=== PATIENT | female | born 1995 | race Caucasian/White ===

== ENCOUNTER 2021-09-20 16:49 | Inpatient (IN) | payer OTHER ==
[~2021-09-20] VITALS: Ht 160 cm; Wt 68.6 kg
[2021-09-20 18:30] LABS: BASOPHILS ABSOLUTE AUTO 0.03 K/mm3 (0.00-0.23); BASOPHILS PERCENT AUTO 0 % (0-2); EOSINOPHILS ABSOLUTE AUTO 0.01 K/mm3 (0.00-0.68); EOSINOPHILS PERCENT AUTO 0 % (0-6); IMMATURE GRAN ABSOLUTE AUTO 0.07 K/mm3 (0.00-0.10); IMMATURE GRAN PERCENT AUTO 0 % (0-1); LYMPHOCYTES ABSOLUTE AUTO 0.62 K/mm3 (0.84-5.20); LYMPHOCYTES PERCENT AUTO 4 % (21-46); MONOCYTES ABSOLUTE AUTO 1.19 K/mm3 (0.16-1.47); MONOCYTES PERCENT AUTO 7 % (4-13); Mean Corpuscular HGB 36.4 pg (26.0-34.0); Mean Corpuscular HGB Conc 34.1 g/dL (31.5-36.5); Mean Corpuscular Volume 107 fL (80-100); Mean Platelet Volume 10.8 fL (9.1-12.4); NEUTROPHILS ABSOLUTE AUTO 14.73 K/mm3 (1.96-9.15); NEUTROPHILS PERCENT AUTO 89 % (41-73); Platelet Count 82 K/mm3 (150-400); RDW Coefficient Variation 15.5 % (11.7-14.2); RDW Standard Deviation 61.4 fL (35.1-46.3); Red Blood Cell Count 3.85 M/mm3 (3.80-5.20); White Blood Cell Count 16.65 K/mm3 (4.00-11.30)
[2021-09-20 18:54] LABS: Albumin, Blood 3.5 g/dL (3.4-5.0); Bun/Creatinine Ratio 31.5 (12.0-20.0); Calcium, Blood 8.8 mg/dL (8.5-10.1); Creatinine, Blood 0.63 mg/dL (0.40-1.00); Globulin, Blood 3.6 g/dL (2.2-4.0); Potassium, Blood 3.1 mmol/L (3.5-5.5); Total Protein, Blood 7.1 g/dL (6.4-8.2)
[2021-09-21 00:39] LABS: Source, Urine Voided
[2021-09-21 00:41] LABS: Blood, Urine 5+ (Neg); Glucose Qualitative, Urine Neg (Neg); Ketones, Urine 4+ (Neg); Leukocyte Esterase, Urine 1+ (Neg); Nitrite, Urine Pos (Neg); Protein, Urine 3+ (Neg); Urobilinogen, Urine 2+ (Normal); pH, Urine 6.5 (5.0-8.0)
[2021-09-21 00:43] LABS: Appearance, Urine Hazy (Clear); Bilirubin, Urine 2+ (Neg); Color, Urine Amber (P-Yellow)
[2021-09-21 00:48] LABS: Amorphous Light (0-Heavy); Bacteria Mod /hpf; Mucus Mod (0-Heavy); Red Blood Cells, Urine TNTC /hpf (0-2); Squamous Epithelial Cells Few /hpf (Few)
[2021-09-21] MEDS ORDERED: METO25ER PO (03:08)
[2021-09-21 05:37] LABS: BASOPHILS ABSOLUTE AUTO 0.01 K/mm3 (0.00-0.23); BASOPHILS PERCENT AUTO 0 % (0-2); EOSINOPHILS ABSOLUTE AUTO 0.03 K/mm3 (0.00-0.68); EOSINOPHILS PERCENT AUTO 0 % (0-6); Hematocrit 37.8 % (33.0-51.0); Hemoglobin 12.8 g/dL (11.5-16.0); IMMATURE GRAN ABSOLUTE AUTO 0.02 K/mm3 (0.00-0.10); IMMATURE GRAN PERCENT AUTO 0 % (0-1); LYMPHOCYTES ABSOLUTE AUTO 0.85 K/mm3 (0.84-5.20); LYMPHOCYTES PERCENT AUTO 9 % (21-46); MONOCYTES ABSOLUTE AUTO 0.53 K/mm3 (0.16-1.47); MONOCYTES PERCENT AUTO 5 % (4-13); Mean Corpuscular HGB 36.6 pg (26.0-34.0); Mean Corpuscular HGB Conc 33.9 g/dL (31.5-36.5); Mean Corpuscular Volume 108 fL (80-100); NEUTROPHILS ABSOLUTE AUTO 8.49 K/mm3 (1.96-9.15); NEUTROPHILS PERCENT AUTO 86 % (41-73); Platelet Count 60 K/mm3 (150-400); RDW Coefficient Variation 15.4 % (11.7-14.2); RDW Standard Deviation 61.8 fL (35.1-46.3); White Blood Cell Count 9.93 K/mm3 (4.00-11.30)
[2021-09-21 06:14] LABS: Alanine Aminotransfer (ALT/SGP 38 U/L (12-78); Albumin, Blood 3.1 g/dL (3.4-5.0); Alk Phos 87 U/L (50-136); Anion Gap 8 mmol/L (6-16); Aspartate Aminotrans (AST/SGOT 64 U/L (12-37); Bilirubin, Total 2.1 mg/dL (0.1-1.0); Blood Urea Nitrogen 18 mg/dL (8-24); Bun/Creatinine Ratio 29.4 (12.0-20.0); CHOL/HDL RATIO 2.7; CO2, Blood 31 mmol/L (21-32); Calcium, Blood 8.5 mg/dL (8.5-10.1); Chloride, Blood 97 mmol/L (98-108); Cholesterol 166 mg/dL (50-200); Creatinine, Blood 0.61 mg/dL (0.40-1.00); Globulin, Blood 3.1 g/dL (2.2-4.0); Glomerular Filtration Rate 125 (60-); Glucose, Blood 78 mg/dL (70-99); HDL Cholesterol 61 mg/dL (>39); LDL/HDL RATIO 1.2; Low Density Lipoprotein Chol 74 mg/dL (0-110); Potassium, Blood 3.4 mmol/L (3.5-5.5); Sodium, Blood 136 mmol/L (136-145); Total Protein, Blood 6.2 g/dL (6.4-8.2); Triglycerides 154 mg/dL (30-140); Very Low Density Lipoprot Chol 30 mg/dL (6-28)
--- NOTE | 2021-09-21 08:29 | NUR ---
SENIOR SQL DEVELOPER SUMMARY PATIENT ALERT AND ORIENTED TIMES 4. OOB WITH STAND BY ASSIST TO BATHROOM. URINE IS TEA COLORED. CULTURES PENDING. CIWA SCORES WERE 8,8 AND 10 OVERNIGHT. MEDICATED ONCE SINCE ARRIVAL ON FLOOR WITH ZOFRAN FOR NAUSEA AND ONCE WITH FENTANYL FOR LOWER ABDOMINAL PAIN,. HOPING FOR SUCCESS IN REHAB AT [facility]
--- NOTE | 2021-09-21 18:31 | NUR ---
SHIFT SUMMARY PT A&O X 4. VSS. DROWSY, STATES SHE'S ANXIOUS, HAS ABD PAIN AND IS MILDLY NAUSEATED. MEDICATED THROUGHOUT SHIFT FOR ALL 3 COMPLAINTS PER MD ORDERS. (SEE EMAR). CLEAR LIQ DIET INITIATED TODAY, HAS TOLERATED WELL SO FAR. SHE REQUESTED A NICOTENE PATCH THIS AFTERNOON, IS A 1 PK A DAY SMOKER. MD GAVE ORDER FOR 21 MG NICOTENE PATCH. 1ST PATCH APPLIED THIS AFTERNOON. SHE HAS RESTED IN BED THROUGHOUT SHIFT WITH EYES CLOSED, RESP EVEN & UNLABORED, ALTHOUGH, SHE REPORTS SHE FEELS ANXIOUS & SHAKY ON THE INSIDE EVEN THOUGH SHE LOOKS LIKE SHE'S RESTING. HER IS TO CONTINUE WITH PARTICIP[facility].
--- NOTE | 2021-09-22 03:53 | NUR ---
PATIENT HAD TROUBLE SLEEPING DUE TO CONTINUED ANXIETY, AND ABDOMINAL PAIN. SHE IS CONCERNED THAT SHE HAS BEEN ON HER PERIOD FOR THE LAST THREE WEEKS. CIWA SCORES BETWEEN 8-11 OVERNIGHT
[2021-09-22 05:30] LABS: Albumin, Blood 2.6 g/dL (3.4-5.0); Bilirubin, Total 1.7 mg/dL (0.1-1.0); Bun/Creatinine Ratio 13.5 (12.0-20.0); Calcium, Blood 8.2 mg/dL (8.5-10.1); Creatinine, Blood 0.52 mg/dL (0.40-1.00); Globulin, Blood 2.7 g/dL (2.2-4.0); Total Protein, Blood 5.3 g/dL (6.4-8.2)
[2021-09-22 12:15] LABS: International Normalized Ratio 1.04; Prothrombin Time Results 10.9 Sec (9.7-11.5)
--- NOTE | 2021-09-22 17:47 | NUR ---
SHIFT SUMMARY PT REMAINS ANXIOUS & IN PAIN. MEDICATED PER MD ORDERS WITH GOOD RESULTS. (SEE EMAR). DIET ADVANCED TO FULL LIQS STARTING TONIGHT WITH DINNER. HAS BEEN TOLERATING CLR LIQ DIET & REPORTS SHE IS LOOKING FORWARD TO DIET BEING ADVANCED. MD MADE AWARE THAT PT IS MENSTRUATING AND THAT IT HAS BEEN 2+ WEEKS LONG. MD WROTE ORDERS TO CHECK INR. PLTS WERE 60 ON 09/21/21. K TODAY WAS 3.0, REPLACED WITH ORAL POTASSIUM PER MD ORDER. PIV REMAINS INTACT & PATENT. VSS. SHE HAS BEEN INDEPENDENTLY GOING TO THE RESTROOM. HER PLAN IS TO RETURN TO ALCOHOL REHAB UPON DC. CIWA SCORE TODAY HAS BEEN <8.
--- NOTE | 2021-09-22 18:42 | NUR ---
CONFIDENTIAL STATUS PT REQUESTED NO VISITORS AND TO BE MADE CONFIDENTIAL STATUS. PLACED CALL TO ADMITTING TO MAKE THE CHANGE. PT IS OK WITH NURSING STAFF TO SPEAK WITH [facility] WHEN THEY CALL TO CHECK ON HER. PT IS ALSO OK WITH STAYING IN THE SAME ROOM.
[2021-09-23 05:11] LABS: Bun/Creatinine Ratio 13.5 (12.0-20.0); Calcium, Blood 8.7 mg/dL (8.5-10.1); Creatinine, Blood 0.52 mg/dL (0.40-1.00); Potassium, Blood 3.1 mmol/L (3.5-5.5)
--- NOTE | 2021-09-23 05:24 | NUR ---
SHIFT SUMMARY NOC: PT CIWA 17 START OF SHIFT AND 8 END OF SHIFT. PT HAVING EXTREME HEADACHE, ANXIETY/AGITIATION, STATES SEEING "SPOTS", NUMBNESS/TINGLING TO HANDS AND FEET. PRN ATIVAN GIVEN. PT ALSO HAVING UNCONTROLLED PACREATIC PAIN TO RIGHT ABDOMEN WITH CURRENT PRN MEDICATION. ICE PACK GIVEN AND PT TOOK HOT SHOWER. MD CALLED, NEW ORDER, PERCOCET 5/325 PO Q6 PRN. PERCOCET STAGGERED WITH FENTANYL. PT REPORTS IMPROVEMENT WITH PAIN AND IS MUCH MORE COMFORTABLE THIS MORNING. PT ATE ONE VANILLA PUDDING AND DRANK ONE MARÍA ELENA MIST LAST NIGHT. PT REPORTS NO NAUSEA ALL SHIFT. PT VERY EAGER TO EAT SOLID FOOD.
--- NOTE | 2021-09-23 16:42 | NUR ---
SHIFT SUMMARY PT A&O X4 AND IN PLEASENT MOOD. PT C/O ANXIETY T/O SHIFT-MEDICATED PER EMAR. PAIN MEDICATED PER EMAR. VSS. ADVANCING DIET TOLLERATED, TOLERATING MECH SOFT @ THIS TIME. C/O HOT FLASHES, FAN PROVIDED. CALL LIGHT W/IN REACH. CIWA PRN T/O SHIFT. PLAN TO D/C TO [facility] FOR [facility]HAB/WITHDRAWL ASSISTANCE TOMORROW.
[2021-09-24 05:45] LABS: Albumin, Blood 3.1 g/dL (3.4-5.0); Albumin/Globulin Ratio 0.9 (0.8-1.8); Bilirubin, Total 0.8 mg/dL (0.1-1.0); Bun/Creatinine Ratio 11.9 (12.0-20.0); Calcium, Blood 9.8 mg/dL (8.5-10.1); Creatinine, Blood 0.59 mg/dL (0.40-1.00); Globulin, Blood 3.5 g/dL (2.2-4.0); Potassium, Blood 3.2 mmol/L (3.5-5.5); Total Protein, Blood 6.6 g/dL (6.4-8.2)
--- NOTE | 2021-09-24 06:13 | NUR ---
SHIFT SUMMARY NOC: CIWA 6-8 ON SECTION CHIEF. PRN ATIVAN GIVEN. PT HAS MILD HEADACHE, MILD TREMORS, MILD PINS/NEEDLES HANDS/FEET. PT STILL HAVING RIGHT UPPER ABDMONIAL PAIN. PRN FENTANYL AND PERCOCET GIVEN WITH MINIMAL EFFECT. PT EATING/DRINKING TOLERATING WELL, NO NAUSEA.
[2021-09-24] MEDS ORDERED: CHLO25 PO (11:57)
[2021-09-24] MEDS ORDERED: FAMO20 PO (12:02)
[2021-09-24] MEDS ORDERED: FOLI1 PO (12:03)
[2021-09-24] MEDS ORDERED: GABA300 PO (12:04)
[2021-09-24] MEDS ORDERED: NICO21TP TOP (12:05)
[2021-09-24] MEDS ORDERED: Percocet 5-3251 EACH PO (12:06)
--- NOTE | 2021-09-24 12:37 | NUR ---
DISCHARGE PT A&OX4 @ TIME OF DC. PT PROVIDE W/ WRITTEN AND VERBAL INFO, PT VERBALIZED UNDERSTANDING. PLAN TO DC TO [facility] FOR ALCOHOL WITHDRAWL. HARD COPY OF OXY AND LIBRIUM PROVIDED TO PT IN D/C FOLDER. TRANSPORT PROVIDED BY [facility]. IV DC/ED. TOLERATING PO INTAKE WELL.
== END 2021-09-24 12:38 | disposition home or self-care (01) | DRG 439 ==
LOC: ER 16:49 → MEDS 09-21 01:13
PROVIDERS: Internal Medicine; Physician Assistant; Student in an Organized Health Care Education/Training Program; ADMIT Internal Medicine
DX: K85.20 Alcohol induced acute pancreatitis without necrosis or infection (principal); F10.239 Alcohol dependence with withdrawal, unspecified; Z88.0 Allergy status to penicillin; I10 Essential (primary) hypertension; Z88.8 Allergy status to other drugs, medicaments and biological substances; F41.9 Anxiety disorder, unspecified; F17.210 Nicotine dependence, cigarettes, uncomplicated
CPT/HCPCS: 36415; 74177; 76705; 80048; 80053; 80061; 81001; 81025; 83690; 85025; 85610; 87086; 94640; 94664; 94760; 96361; 96365; 96374; 96375; 96376; 99285-25; A9270; J1650; J1885; J2060; J2270; J2405; J2765; J3010; J3411; J3475; J3480; J7030; J7042; J7050; J7120; Q9967